=== PATIENT | male | born 1985 | race Caucasian/White ===

== ENCOUNTER 2018-03-15 09:57 | Emergency (ER) | payer SELFPAY ==
[2018-03-15 10:14] VITALS: BP 131/89
--- NOTE | 2018-03-15 10:30 | UC ---
Nausea/Vomiting/Diarrhea HPI - HPI Summary HPI Summary: 33-year-old male presents for clearance to return to work. States on 2017 he developed nausea, vomiting, and diarrhea. States his symptoms persisted until 2 days ago. States his children were sick with similar symptoms prior to the onset of his symptoms. At this time he denies fever, chills, weakness, dizziness, abdominal pain, nausea, vomiting, or diarrhea. 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 Time Seen by Provider: 03/15/18 10:18 Hx Obtained From: Patient Pain Intensity: 0 - Allergies/Home Medications Allergies/Adverse Reactions: Allergies Allergy/AdvReac Type Severity Reaction Status Date / Time No Known Allergies Allergy Verified 03/15/18 10:14 Home Medications: Home Medications NK [No Home Medications Reported] 03/15/18 [History Confirmed 03/15/18] PMH/Surg Hx/FS Hx/Imm Hx Previously Healthy: Yes - Denies significant PMH - Surgical History Surgical History: None - Family History Known Family History: Positive: Non-Contributory - Social History Occupation: Employed Full-time Lives: With Family Alcohol Use: None Substance Use Type: None Smoking Status (MU): Never Smoked Tobacco Review of Systems All Other Systems Reviewed And Are Negative: Yes Constitutional: Negative: Fever, Chills Respiratory: Negative: Shortness Of Breath, Cough Cardiovascular: Negative: Palpitations, Chest Pain Gastrointestinal: Negative: Abdominal Pain, Vomiting, Diarrhea, Nausea Is Patient Immunocompromised?: No Physical Exam - Summary Physical Exam Summary: GENERAL APPEARANCE: Well developed, well nourished, alert and cooperative, and appears to be in no acute distress. NECK: Neck supple, non-tender without lymphadenopathy. CARDIAC: Normal S1 and S2. No S3, S4 or murmurs. Rhythm is regular. There is no peripheral edema, cyanosis or pallor. Extremities are warm and well perfused. Capillary refill is less than 2 seconds. LUNGS: Clear to auscultation and percussion without rales, rhonchi, wheezing or diminished breath sounds. ABDOMEN: Positive bowel sounds. Soft, nondistended, nontender. No guarding or rebound. No masses or hepatosplenomegally. MUSKULOSKELETAL: ROM intact to all extremities. No joint erythema or tenderness. Normal muscular development. Normal gait. SKIN: Skin normal color, texture and turgor with no lesions or eruptions. Triage Information Reviewed: Yes Vital Signs: Initial Vital Signs Temp 98.2 F 03/15/18 10:11 Pulse 103 03/15/18 10:11 Resp 15 03/15/18 10:11 BP 131/89 03/15/18 10:11 Pulse Ox 100 03/15/18 10:11 Vital Signs Reviewed: Yes Naus/Vom/Diarrhea Course/Dx - Course Course Of Treatment: 33-year-old male presents for clearance to return to work. States on 03/11/2018 he developed nausea, vomiting, and diarrhea. States his symptoms persisted until 2 days ago. States his children were sick with similar symptoms prior to the onset of his symptoms. At this time he denies fever, chills, weakness, dizziness, abdominal pain, nausea, vomiting, or diarrhea. Afebrile. Vital signs stable. Exam was unremarkable. Patient may return to work without restrictions at this time. He is to follow-up with primary care provider as needed. Warning symptoms were reviewed with the patient. Verbalizes understanding and agrees with plan of care. - Differential Dx/Diagnosis Differential Diagnoses - Male: Gastroenteritis (Viral), Gastroenteritis ( Bacterial), Vomiting, Diarrhea, Gastritis Provider Diagnosis: Nausea, vomiting, and diarrhea Condition At Discharge: Stable Discharge - Sign-Out/Discharge Documenting (check all that apply): Patient Departure All imaging exams completed and their final reports reviewed: No Studies - Discharge Plan Condition: Stable Disposition: HOME Patient Education Materials: Gastroenteritis (ED) Forms: *Work Release Referrals: Jonathan Cardoza MD [Primary Care Provider] - Additional Instructions: Your symptoms were likely a viral gastroenteritis that has resolved at this time. You may return to work without restrictions. Your blood pressure was slightly elevated today in the clinic. It is recommended that you follow up with your primary care provider to have this rechecked. Seek immediate medical attention in the emergency room if you have severe abdominal pain, persistent vomiting, blood in your vomit or bowel movement, or any worsening of symptoms. - Billing Disposition and Condition Condition: STABLE Disposition: Home
== END 2018-03-15 10:39 | disposition home or self-care (01) ==
LOC: UCCORT 09:57
DX: R11.2 Nausea with vomiting, unspecified (principal); R19.7 Diarrhea, unspecified
CPT/HCPCS: 99211; G0463

== ENCOUNTER 2018-06-06 12:20 | Emergency (ER) | payer BC ==
[2018-06-06 13:05] VITALS: BP 139/85
[2018-06-06] MEDS ORDERED: Ibuprofen TAB* 600 MG PO ONE (13:17)
--- NOTE | 2018-06-06 13:21 | UC ---
FLU HPI - HPI Summary HPI Summary: 33-year-old male comes in with chief complaint of a day and a half symptoms of fever chills body aches rhinorrhea cough chest congestion. He is not tried any [id number] medications. Reports that the rhinorrhea is green. No wheezing not short of breath. - History of Current Complaint Chief Complaint: UCRespiratory Stated Complaint: FEVER,BODY ACHES,CHILLS Time Seen by Provider: 06/06/18 13:12 Pain Intensity: 7 - Allergy/Home Medications Allergies/Adverse Reactions: Allergies Allergy/AdvReac Type Severity Reaction Status Date / Time No Known Allergies Allergy Verified 06/06/18 12:59 PMH/Surg Hx/FS Hx/Imm Hx Previously Healthy: Yes - Surgical History Surgical History: None - Family History Known Family History: Positive: Non-Contributory - Social History Alcohol Use: None Substance Use Type: None Smoking Status (MU): Never Smoked Tobacco Review of Systems All Other Systems Reviewed And Are Negative: Yes Constitutional: Positive: Fever, Chills Skin: Positive: Negative Eyes: Positive: Negative ENT: Positive: Sore Throat, Nasal Discharge, Sinus Congestion Respiratory: Positive: Cough Cardiovascular: Positive: Negative Gastrointestinal: Positive: Negative Motor: Positive: Negative Neurovascular: Positive: Negative Musculoskeletal: Positive: Myalgia Neurological: Positive: Negative Psychological: Positive: Negative Is Patient Immunocompromised?: No Physical Exam Triage Information Reviewed: Yes Appearance: No Pain Distress, Well-Nourished, Ill-Appearing - MILD Vital Signs: Initial Vital Signs Temp 98.3 F 06/06/18 13:00 Pulse 99 06/06/18 13:00 Resp 20 06/06/18 13:00 BP 139/85 06/06/18 13:00 Pulse Ox 97 06/06/18 13:00 Vital Signs Reviewed: Yes Eye Exam: Normal Eyes: Positive: Conjunctiva Clear ENT: Positive: Pharyngeal erythema, Nasal congestion, Nasal drainage, TMs normal Neck exam: Normal Neck: Positive: Supple, Nontender Respiratory: Positive: No respiratory distress, No accessory muscle use, Rhonchi Cardiovascular: Positive: RRR Musculoskeletal Exam: Normal Musculoskeletal: Positive: Strength Intact, ROM Intact Neurological Exam: Normal Neurological: Positive: Alert, Muscle Tone Normal Psychological Exam: Normal Psychological: Positive: Age Appropriate Behavior Skin Exam: Normal Flu Course/Dx - Course Course Of Treatment: DISCUSSED VIRAL VERSES BACTERIAL INFECTION AND THE ROLE OF ANTIBIOTICS. THE PATIENT WISHES TO BE ON ANTIBIOTICS AT THIS TIME. - Differential Dx/Diagnosis Provider Diagnosis: Upper respiratory infection Discharge - Sign-Out/Discharge Documenting (check all that apply): Patient Departure All imaging exams completed and their final reports reviewed: No Studies - Discharge Plan Condition: Stable Disposition: HOME Prescriptions: Amoxicillin PO (*) [Amoxicillin 500 MG CAP*] 500 mg PO TID #30 cap Patient Education Materials: Upper Respiratory Infection (ED) Forms: *Work Release Referrals: Jonathan Cardoza MD [Primary Care Provider] - Additional Instructions: FOLLOW UP WITH YOUR DOCTOR IF NOT COMPLETELY IMPROVED. GET RECHECKED FOR ANY WORSENING OF YOUR CONDITION OR QUESTIONS OR CONCERNS. - Billing Disposition and Condition Condition: STABLE Disposition: Home
[2018-06-06 13:35] LABS: Influenza A Molecular NEGATIVE (Negative); Influenza B Molecular NEGATIVE (Negative)
== END 2018-06-06 13:51 | disposition home or self-care (01) ==
LOC: UCCORT 12:20
DX: J06.9 Acute upper respiratory infection, unspecified (principal)
CPT/HCPCS: 99212; A9270-GY; G0463

== ENCOUNTER 2019-06-19 09:05 | Emergency (ER) | payer BC ==
[2019-06-19 09:23] VITALS: BP 143/97
--- NOTE | 2019-06-19 09:36 | UC ---
UC General HPI - HPI Summary HPI Summary: Woke with sore throat yesterday - feels fine today No cough, No fever No congestion or runny nose Good PO No N/V/D Needs work note - welding shop - History of Current Complaint Chief Complaint: UCRespiratory Stated Complaint: SORE THROAT Time Seen by Provider: 06/19/19 09:10 Pain Intensity: 0 - Allergy/Home Medications Allergies/Adverse Reactions: Allergies Allergy/AdvReac Type Severity Reaction Status Date / Time No Known Allergies Allergy Verified 06/19/19 09:19 Home Medications: Home Medications Phenylephrine/Dm/Acetaminop/GG [Mucinex Fast-Max Cold-Flu Liq] 1 liq PO ONCE [History Confirmed 06/19/19] Zonisamide [Zonegran] 400 mg PO DAILY 06/19/19 [History Confirmed 06/19/19] PMH/Surg Hx/FS Hx/Imm Hx Previously Healthy: Yes - Surgical History Surgical History: None - Family History Known Family History: Positive: Non-Contributory - Social History Alcohol Use: None Substance Use Type: None Smoking Status (MU): Never Smoked Tobacco Review of Systems All Other Systems Reviewed And Are Negative: Yes ENT: Positive: Sore Throat Physical Exam Triage Information Reviewed: Yes Appearance: Well-Appearing Vital Signs: Initial Vital Signs Temp 97.9 F 06/19/19 09:16 Pulse 78 06/19/19 09:16 Resp 18 06/19/19 09:16 BP 143/97 06/19/19 09:16 Pulse Ox 100 06/19/19 09:16 Vital Signs Reviewed: Yes ENT: Positive: Pharyngeal erythema Neck: Positive: Supple, Nontender Respiratory: Positive: Lungs clear, Normal breath sounds Cardiovascular: Positive: RRR, No Murmur Course/Dx - Course Course Of Treatment: Patient is a 34 yr old with a sore throat Rapid strep negative Likely viral pharyngitis Plan Continue to monitor symptoms Recommend re-evaluation if you have a fever or cough Drink plenty of fluids and recommend ibuprofen as needed for pain -take as directed - Diagnoses Provider Diagnosis: Pharyngitis Discharge ED - Sign-Out/Discharge Documenting (check all that apply): Patient Departure All imaging exams completed and their final reports reviewed: No Studies - Discharge Plan Condition: Good Disposition: HOME Patient Education Materials: Pharyngitis (ED) Forms: *Work Release Referrals: Jonathan Cardoza MD [Primary Care Provider] - Additional Instructions: Continue to monitor symptoms Recommend re-evaluation if you have a fever or cough Drink plenty of fluids and recommend ibuprofen as needed for pain -take as directed - Billing Disposition and Condition Condition: GOOD Disposition: Home
== END 2019-06-19 09:47 | disposition home or self-care (01) ==
LOC: UCCORT 09:05
DX: J02.9 Acute pharyngitis, unspecified (principal)
CPT/HCPCS: 87651; 99211; G0463